=== PATIENT | female | born 1990 | race Caucasian/White ===

== ENCOUNTER 2017-08-20 10:58 | Emergency (ER) | payer MEDICAID, SELFPAY ==
[2017-08-20 11:00] VITALS: BP 133/79; PULSE 89; RESP 14; TEMP 36.9; O2SAT 100; BMI 18.1
--- NOTE | 2017-08-20 11:20 | ED.DCSUM_ITS ---
- ER Visit Summary Date of Service: 08/20/17 Chief Complaint: Nausea and vomiting History of Present Illness: The patient is a 27 F who presents with nausea and vomiting that began this morning. Patient states she is vomiting undigested food. Patient denies any fevers or chills. Patient denies any hematemesis or coffee-ground emesis. Patient admits to some abdominal cramping. Patient states she tried to take Zofran this morning with no relief. Patient states she vomited after taking that. Patient also states she has been having some vaginal spotting over the last couple days. Patient states her last menstrual period was at the beginning of this month and was normal. Physical Examination: Vital signs are stable. Patient is afebrile. Patient is in no acute distress. Oral mucosa is pink and moist. Oropharynx is clear. Pupils are equal, round, and reactive to light bilaterally. Extraocular muscles are intact. Heart was regular rate and rhythm. Lungs are clear and equal bilaterally. There is good respiratory effort noted. Abdomen is soft. There is some mild diffuse tenderness. There is no rebound or guarding noted. Cranial nerves II through XII are intact. There are no focal motor or sensory deficits noted. Test Results: A CBC, basic metabolic profile, urine hCG and urinalysis was obtained and were within normal limits. Emergency Department Course and Treatment: Patient was given IV fluids and Zofran here. Patient felt better on reevaluation. Patient was given a prescription for Zofran ODT tablets. Patient was instructed to drink small amounts of liquids frequently. Patient was instructed to advance her diet as tolerated. Patient was instructed to follow-up with her primary care physician in 7-10 days. Patient understood and was agreeable with the plan. All questions were answered. Disposition: Discharge home Impression: Nausea and vomiting This note was generated with [employer] dictation software. It may contain incorrect words, spelling, and punctuation that were not noted in review of the chart prior to signing ED Disposition - Plan for ED Patient: Disposition: Home or Assisted Living Chief Complaint: Nausea/Vomiting Diagnosis: Nausea and vomiting Instructions: ED Nausea Vomiting Prescriptions: Ondansetron [Zofran Odt] 4 mg PO Q8H PRN PRN #9 tab PRN Reason: Nausea/Vomiting Referrals: Care Physician,No Primary [Primary Care Provider] -
[2017-08-20] MEDS: Ondansetron 4 MG/2 ML Vial IV (11:29)
[2017-08-20] MEDS: 0.9% Normal Saline 1,000 ML 1000 ML IV (11:29)
[2017-08-20 11:41] LABS: Bacteria 0 SEEN /hpf (None Seen); Mucous, Urine 0 SEEN /hpf (<or=2+); Red Blood Cells-Urine 0 SEEN /hpf (0-5)
[2017-08-20 11:48] LABS: Absolute Lymphocyte Count 0.95 X10^3/ul (0.83-4.51); Absolute Neutrophil Count 7.2 X10^3/uL (2.0-7.7); Basophil# 0.02 X10^3/uL; Basophil% 0.2 % (0-1); Color, Urine Yellow (Yellow); Eosinophil# 0.03 X10^3/uL; Eosinophils% 0.4 % (0-5); Glucose, Dipstick Normal (Normal); Hemoglobin 11.6 g/dl (12.0-15.0); Ketone-Dipstick 5 mg/dl (Negative); Leukocyte Esterase-Dipstick 25 /ul (Negative); Lymphocyte # 0.95 X10^3/ul (4.0); Lymphocyte % 11.2 % (19-41); Mean Corp Hgb Conc 31.4 g/gl (32-36); Mean Corpuscular Hgb 27.1 pg (27.0-32.0); Mean Corpuscular Volume 86.4 fL (81-99); Mean Platelet Vol. 10.8 fl (6.2-12.0); Monocyte# 0.26 X10^3/uL; Monocyte% 3.1 % (0-10); Neutrophil # 7.21 X10^3/uL (2.7-7.7); Nitrite-Dipstick Negative (Negative); Occult Blood-Urine 25 /ul (Negative); Platelet Count 331 K/mm3 (150-450); Protein-Dipstick Negative (Negative); RBC Distribution Width CV 17.7 % (11.6-14.6); RBC Distribution Width SD 55.9 fl (35.1-43.9); Red Blood Count 4.28 M/mm3 (4.2-5.4); Urine Bilirubin Dipstick Negative (Negative); Urine Clarity Sl. Cloudy (Clear); Urine Urobilinogen Normal (Normal); White Blood Count 8.5 K/mm3 (4.4-11.0)
[2017-08-20 11:49] LABS: POSITIVE COUNT NO; POSITIVE DIFFERENTIAL NO; POSITIVE MORPHOLOGY NO
[2017-08-20 11:50] LABS: Internal QC Validated? YES +Cl - CLEAR BKGD; Pregnancy, Urine Negative Negative
[2017-08-20 11:57] LABS: Amorphous Sediment 2+; Squamous Epithelial Cells - UA 0-5 SEEN /hpf (5-10); White Blood Cells 0-5 SEEN /hpf (0-5)
[2017-08-20 11:59] LABS: Anion Gap 8 (5-15); BUN 13 mg/dL (7-18); BUN/Creat Ratio 20.6 RATIO (10-20); Calcium,Total 8.8 mg/dL (8.5-10.1); Chloride 105 mmol/L (98-107); Creatinine, Serum 0.63 mg/dL (0.55-1.02); EST Glomerular Filtration Rate 119 mL/min (>60); Est Glom Filt Rate - Afr Amer 144 mL/min (>60); Estimated Creatinine Clearance 106.62 ml/min; Glucose 91 mg/dL (74-106); Potassium 3.7 mmol/L (3.5-5.1); Sodium Level 140 mmol/L (136-145)
[2017-08-20 12:54] VITALS: BP 112/64; PULSE 64; RESP 16; O2SAT 99
[2017-08-20 12:58] VITALS: BP 112/64; PULSE 64; RESP 16; O2SAT 99
== END 2017-08-20 12:59 | disposition home or self-care (01) ==
PROVIDERS: Emergency Provider Emergency Medicine
DX: R11.2 Nausea with vomiting, unspecified (principal); R10.9 Unspecified abdominal pain; N93.9 Abnormal uterine and vaginal bleeding, unspecified
CPT/HCPCS: 80048; 81001; 81025; 85025; 96361; 96374; 99284; J7030; J2405